=== PATIENT | female | born 1995 | race Caucasian/White ===

== ENCOUNTER → 2018-10-11 | Outpatient (REF) | payer BC ==
[2018-10-11 15:08] LABS: PLATELET COUNT, AUTOMATED 212 K/uL (150-450)
== END ==
PROVIDERS: ATTEND Family Medicine
DX: R19.7 Diarrhea, unspecified (principal); R11.10 Vomiting, unspecified; R10.9 Unspecified abdominal pain
CPT/HCPCS: 82040; 82247; 82310; 82374; 82435; 82565; 82947; 83630; 84075; 84132; 84155; 84295; 84450; 84460; 84520; 85025; 86140; 87045; 87177